=== PATIENT | female | born 1990 | race African-American/Black ===

== ENCOUNTER 2020-08-21 06:12 | Inpatient (IN) ==
[2020-08-21] MEDS ORDERED: TERBUTALINE 1 MG/1 ML VIAL SUBCUT PRN (07:18)
[2020-08-21] MEDS ORDERED: ONDANSETRON 4 MG/2 ML VIAL IV PRN (07:18)
[2020-08-21] MEDS ORDERED: miSOPROStoL 200 MCG TABLET VAG PRN (07:18)
[2020-08-21] MEDS: LACTATED RINGERS 1,000 ML IV SCH ×2 (07:43→18:02)
[2020-08-21 07:49] LABS: Basophils % 0.3 % (0.0-0.8); Eosinophils # 0.1 10*3/uL (0.0-0.87); Eosinophils % 0.9 % (0.00-10.9); Hematocrit 30.1 VOL% (35.7-47.0); Immature Granulocytes % 2.8 %; Immature Granulocytes Absolute 0.33 #; Lymphocytes # 2.2 10*3/uL (1.4-4.0); Lymphocytes % 18.4 % (21.3-54.2); Mean Corpuscular HGB Conc 33.2 GM/DL (32-36); Mean Platelet Volume 10.8 FL (9.6-12.0); Monocytes % 5.9 % (1.7-12.7); Neutrophils % 71.7 % (38.7-73.9); Platelet Count 215 T/CUMM (130-400); Red Blood Count 3.67 MC/CUMM (3.8-5.5); Red Cell Distribution Width 15.2 % (9.3-17.3); White Blood Count 11.9 T/CUMM (4-12)
[2020-08-21 08:00] LABS: INR 0.9; PT Patient Result 10.3 SECS (10.5-12.0); Partial Thromboplastin Time 27.6 SECS (23.9-33.8)
[2020-08-21 08:09] LABS: Albumin 2.8 G/DL (3.4-5.0); Bilirubin,Total 0.4 MG/DL (0.20-1.00); Calcium 8.3 MG/DL (8.5-10.1); Osmolality,Calculated 275.4 MOS/KG (273-304); Potassium 3.9 MMOL/L (3.5-5.1); Total Protein 6.3 G/DL (6.4-8.2); Uric Acid 5.7 MG/DL (2.6-6.0)
[2020-08-21] MEDS ORDERED: MEPERIDINE 50 MG/1 ML VIAL IV PRN (16:47)
[2020-08-21] MEDS ORDERED: MEPERIDINE 50 MG/1 ML VIAL ONE (16:55)
[2020-08-21] MEDS ORDERED: diphenhydrAMINE 50 MG/1 ML VIAL IV PRN (17:45)
[2020-08-21] MEDS ORDERED: CITRIC ACID/SODIUM CITRATE 30 ML UDCUP PO ONE (17:45)
[2020-08-21] MEDS ORDERED: PROMETHAZINE 25 MG/1 ML VIAL IM PRN (17:45)
[2020-08-21] MEDS ORDERED: FAMOTIDINE 20 MG/2 ML VIAL IV ONE ×2 (17:45→17:49)
[2020-08-21] MEDS ORDERED: ePHEDrine 50 MG/ML VIAL IV PRN (17:45)
[2020-08-21] MEDS ORDERED: NALOXONE 0.4 MG/ML VIAL IV PRN (17:45)
[2020-08-21] MEDS ORDERED: fentaNYL 2 MCG/ROPIV 0.2% EPID 100 ML EPIDURAL ONE (17:49)
[2020-08-21] MEDS ORDERED: fentaNYL 2 MCG/ROPIV 0.2% EPID 100 ML EPIDURAL SCH (18:00)
[2020-08-21] MEDS ORDERED: miSOPROStoL 200 MCG TABLET ONE (19:31)
[2020-08-21] MEDS ORDERED: OXYTOCIN/LR 20 UNIT/1,000 ML BAG IV ONE (19:31)
[2020-08-21] MEDS ORDERED: TRANEXAMIC ACID 1,000 MG/10 ML VIAL ONE (19:31)
[2020-08-21] MEDS ORDERED: CARBOPROST TROMETHAMINE 250 MCG/ML AMP IM ONE (19:32)
[2020-08-21] MEDS ORDERED: METHYLERGONOVINE 0.2 MG/1 ML AMP ONE (19:32)
[2020-08-21] MEDS: OXYTOCIN/LR 20 UNIT/1,000 ML BAG IV PRN (19:56)
[2020-08-21 20:10] LABS: Cord Arterial Blood HCO3 25.3 MMOL/L
[2020-08-21 20:12] LABS: Cord Venous Blood HCO3 22.7 MMOL/L; Cord Venous Blood PCO2 49.5 MMHG; Cord Venous Blood PO2 22.5 MMHG
[2020-08-22] MEDS ORDERED: OXYTOCIN/LR 20 UNIT/1,000 ML BAG IV ONE (00:10)
[2020-08-22] MEDS: OXYTOCIN/LR 20 UNIT/1,000 ML BAG IV PRN (00:35)
[2020-08-22] MEDS: IBUPROFEN 800 MG TABLET PO PRN ×3 (00:35→19:17)
[2020-08-22] MEDS: DOCUSATE SODIUM 100 MG CAPSULE PO SCH ×2 (08:00→20:18)
[2020-08-23] MEDS: IBUPROFEN 800 MG TABLET PO PRN (05:10)
[2020-08-23 07:49] LABS: Basophils % 0.3 % (0.0-0.8); Eosinophils # 0.3 10*3/uL (0.0-0.87); Hematocrit 28.2 VOL% (35.7-47.0); Immature Granulocytes % 1.4 %; Immature Granulocytes Absolute 0.22 #; Lymphocytes # 3.7 10*3/uL (1.4-4.0); Mean Corpuscular HGB Conc 31.9 GM/DL (32-36); Mean Corpuscular Volume 84.4 FL (87-102); Mean Platelet Volume 10.9 FL (9.6-12.0); Monocytes % 5.9 % (1.7-12.7); Neutrophils % 67.4 % (38.7-73.9); Platelet Count 212 T/CUMM (130-400); Red Blood Count 3.34 MC/CUMM (3.8-5.5); Red Cell Distribution Width 15.3 % (9.3-17.3); White Blood Count 15.9 T/CUMM (4-12)
[2020-08-23] MEDS: DOCUSATE SODIUM 100 MG CAPSULE PO SCH (10:39)
[2020-08-23] MEDS ORDERED: DIPH/TET/ACEL PERT BOOSTER VACCINE 0.5 ML VIAL IM ONE (13:41)
[2020-08-23 17:24] VITALS: BP 140/89
== END 2020-08-23 16:05 | disposition home or self-care (01) | DRG 807 ==
LOC: N.LD 06:12 → N.OB 08-22 01:30
PROVIDERS: ADMIT Obstetrics & Gynecology; ATTEND Obstetrics & Gynecology